=== PATIENT | female | born 1980 | race Caucasian/White ===

== ENCOUNTER 2017-12-06 06:23 | Day surgery (SDC) | END 2017-12-06 12:25 | disposition home or self-care (01) ==

== ENCOUNTER 2018-12-04 15:41 | Emergency (ER) | payer OTHER ==
[~2018-12-04] VITALS: Ht 162.6 cm; Wt 69.7 kg
[2018-12-04 15:46] VITALS: Ht 162.6 cm; Wt 69.7 kg
[2018-12-04] MEDS ORDERED: KETOROLAC 60 MG INJ IM STA (16:56)
[2018-12-04] MEDS ORDERED: IBUP-1542 PO (18:07)
[2018-12-04] MEDS ORDERED: CYCL10TA7 PO (18:07)
[2018-12-04 19:24] VITALS: BP 133/97; PULSE 69; RESP 19
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
== END 2018-12-04 19:26 | disposition home or self-care (01) ==
LOC: FTE 15:41
DX: M79.641 Pain in right hand (principal); M25.511 Pain in right shoulder; M54.9 Dorsalgia, unspecified
CPT/HCPCS: 29125; 73010; 73030; 73130; 81025; J1885; Z7610; 96372